=== PATIENT | male | born 1950 | race Caucasian/White ===

== ENCOUNTER → 2017-05-11 | Outpatient (CLI) | payer BC ==
[~2017-05-11] MED LIST: OLME1TAB69 PO; OLME1TAB73 PO; PNEU0.5D3 IM; SULF-198 PO
[2017-05-11 10:26] LABS: PLATELET COUNT, AUTOMATED 181 K/uL (150-450)
[2017-05-11 10:42] LABS: LDL CHOLESTEROL 73 mg/dl
== END ==
LOC: LAB 10:09
PROVIDERS: ATTEND Internal Medicine
DX: Z12.5 Encounter for screening for malignant neoplasm of prostate (principal); E78.5 Hyperlipidemia, unspecified; M10.9 Gout, unspecified; I10 Essential (primary) hypertension
CPT/HCPCS: 36415; 81001; 82040; 82247; 82310; 82374; 82435; 82465; 82565; 82947; 83718; 84075; 84132; 84153; 84155; 84295; 84443; 84450; 84460; 84478; 84520; 84550; 85025

== ENCOUNTER 2017-06-09 01:40 | Day surgery (SDC) | payer BC ==
[~2017-06-09] VITALS: Ht 170.2 cm; Wt 96.2 kg
[2017-06-09 07:06] VITALS: BP 124/75
[2017-06-09] MEDS ORDERED: LIDOCAINE/SOD BICARB 8.4% SYR ID ONE (07:15)
[2017-06-09] MEDS ORDERED: MIDAZOLAM 2 MG/2 ML VIAL IVP PRN (07:15)
[2017-06-09] MEDS ORDERED: NORMOSOL R SOLN(*) 1000 ML BAG 1,000 ML IV PRN (07:15)
[2017-06-09 09:08] VITALS: BP 124/75
[2017-06-09 09:24] VITALS: BP 93/62
[2017-06-09 09:40] VITALS: BP 96/65
[2017-06-09 09:42] VITALS: BP 102/74
== END 2017-06-09 09:58 | disposition home or self-care (01) ==
LOC: OR 01:40
PROVIDERS: ATTEND Internal Medicine
DX: Z12.11 Encounter for screening for malignant neoplasm of colon (principal); K63.5 Polyp of colon
CPT/HCPCS: 88305

== ENCOUNTER → 2018-06-14 | Outpatient (CLI) | payer MEDICARE ==
[2018-06-14 09:03] LABS: PLATELET COUNT, AUTOMATED 164 K/uL (150-450)
[2018-06-14 09:46] LABS: LDL CHOLESTEROL 96 mg/dl
== END ==
LOC: LAB 08:45
PROVIDERS: ATTEND Internal Medicine
DX: Z12.5 Encounter for screening for malignant neoplasm of prostate (principal); Z00.00 Encounter for general adult medical examination without abnormal findings; I10 Essential (primary) hypertension; E78.5 Hyperlipidemia, unspecified
CPT/HCPCS: 36415; 81001; 84443; 84550; 85025; G0103; 82040; 82247; 82310; 82374; 82435; 82465; 82565; 82947; 83718; 84075; 84132; 84153; 84155; 84295; 84450; 84460; 84478; 84520